=== PATIENT | female | born 1980 | race Hispanic/Latino ===

== ENCOUNTER 2017-11-03 10:19 | Inpatient (IN) | payer MEDICAID, OTHER, SELFPAY ==
[2017-11-03] MEDS: Lactated Ringer's 1,000 ML IV SCH ×3 (11:01→20:47)
[2017-11-03] MEDS ORDERED: Penicillin G Potassium 5 MILL.UNITS VIAL ONE (11:04)
[2017-11-03] MEDS ORDERED: Lidocaine 1% (PF) 30 ML VIAL ONE (11:09)
[2017-11-03] MEDS ORDERED: Penicillin G Potassium 5 MILL.UNITS in Sodium Chloride 0.9% 100 ML IVPB SCH (11:15)
[2017-11-03] MEDS: LR / Pitocin 40 units/1000 ml 1,000 ML ONE (11:21)
[2017-11-03] MEDS ORDERED: Lanolin Ointment 7 GM TUBE TOP PRN (11:34)
[2017-11-03] MEDS ORDERED: Ondansetron HCl/PF 4 MG/2 ML Vial IVP PRN ×2 (11:34)
[2017-11-03] MEDS ORDERED: Promethazine HCl 25 MG/ML VIAL IM PRN (11:34)
[2017-11-03] MEDS ORDERED: Bisacodyl 10 MG SUPP PR PRN (11:34)
[2017-11-03] MEDS ORDERED: Preparation H Ointment 28 GM TUBE PR PRN (11:34)
[2017-11-03] MEDS ORDERED: Milk Of Magnesia 30 ML UDCUP PO PRN (11:34)
[2017-11-03] MEDS ORDERED: diphenhydrAMINE 25 MG CAP PO PRN (11:34)
[2017-11-03] MEDS ORDERED: Adacel (T-DAP) 0.5 ML VIAL IM ONE (11:34)
[2017-11-03] MEDS ORDERED: Acetaminophen 500 MG TAB PO PRN (11:34)
[2017-11-03] MEDS ORDERED: Benzocaine/Menthol 20-0.5% 60 ML CAN TOP PRN (11:34)
--- NOTE | 2017-11-03 11:43 | PDOC.LDHP ---
Labor and Delivery H&P Chief complaint: contractions HPI: Pt came in reporting having ctx every 4-9 minutes. Says they were getting strong and having pain. Denied any bleeding. Denied any loss of fluid. Current gestational age (weeks): 39 (1 day) Due date: 11/09/17 Dating criteria: last menstrual period, first trimester ultrasound Grav: 6 Para: 3 OB History Details: 3 prior , 1 15 week AB, 1 early 1st trimester AB Current complications: gestational diabetes (A1) Abnormal US findings: No Past Medical History: None Current medications: pre-shaq vitamins Previous surgical history: dilation and curettage Social history: none - Physical Exam Vital signs reviewed and normal: yes General: NAD, breathing through contractions Heart: RRR Lungs: CTAB Abdomen: NTTP Extremeties: no edema FHT: category 2, late decelerations [place] contractions every: 2 - Vaginal Exam cm dilated: 8 Effacement: 90% Station: 0 - OB Labs Blood type: O RH: positive Antibody Screen: negative HIV: negative RPR: negative HEPSAg: negative 1 hour GCT: positive 3 hour GTT: negative GBS: positive Urine drug screen: negative Rubella: immune Additional Labs: Gonnorhea (-) Chlamydia (-) - Assessment L&D Assessment: term patient in labor Term Delivered GDM A1 -failed 1 hr GTT, Passed 3 hr GTT, Failed a value in 3 hr GTT with risk factors for GDM - Plan Plan: admit to L&D -: Term Delivered -Patient came in dilated @ 8/90/0. She was radha every 2-3 minutes. FHT showed a few late tracings. So her membranes were ruptured and an IUPC was placed. Oxygen was administered and pt was turned to her side. She then continued to have contractions and pain. We then reassessed her. Again cervical check was 8/90/0. She then had severe pain and had a big push and delivered onto the bed @ 11:14. Thick meconium was noted. -No lacerations were noted. -No bleeding. Uterus firm upon massage. -Apgars unknown. Will get from nursery. -Routine post care. GBS+ -Did not recieve any penicillin. -Will keep here for 48 hr monitoring Pt is GDM A1 with failed value during 3 hr GTT and risk factors -Will check serum glucose <Britton Spicer - Last Filed: 11/03/17 11:44> <Kassi Orona - Last Filed: 11/03/17 14:34> Allergies/Adverse Reactions: Allergies Allergy/AdvReac Type Severity Reaction Status Date / Time No Known Allergies Allergy Unverified 11/03/17 10:42 Attending Addendum - Attending Addendum I personally evaluated the patient and discussed the management with Dr. Spicer I agree with the History, Examination, Assessment and Plan documented above with any addition or exceptions noted below. 37 yo now female at 39.1 wks by LMP/18.2 wk sono delivered precipitously via . No lacerations. EBL 350 mL Thick mec. 1. sIUP: IOB labs and anatomy reviewed. 3T negative. GBS pos. 2. A1GDM: 1 hour gtt = 161. 3 hour gtt = 87/168/187/114. Glucose at goal. Admit glucose 78. 3. GBS pos: No PCN given due to urgency of delivery. 4. hx of CT: RILEY negative. 5. BMI 37: wt stable. 2lb wt gain. 6. Anemia of Continue routine care. Will be transferred to after routine recovery. ABrayMD <Kassi Orona - Last Filed: 11/03/17 14:34>
[2017-11-03 11:45] VITALS: BMI 37.3
[2017-11-03] MEDS ORDERED: LR / Pitocin 40 units/1000 ml 1,000 ML IV SCH (11:45)
[2017-11-03 11:49] LABS: Hemoglobin 12.6 g/dL (12.0-16.0); Mean Corpuscular HGB CONC 32.7 g/dL (32.0-36.0); Mean Corpuscular Hemoglobin 31.3 pg (27.0-31.0); Mean Corpuscular Volume 95.7 fl (81.0-99.0); Platelet Count 229 thou/uL (130-400); RBC Distribution Width 12.5 % (11.5-14.5); Red Blood Cell (RBC) Count 4.02 mill/uL (4.20-5.40); White Blood Cell (WBC) Count 9.4 thou/uL (4.8-10.8)
[2017-11-03 12:03] LABS: Anion Gap 13 mmol/L (10-20); BUN (Urea Nitrogen) 8 mg/dL (7.0-18.7); Calc. Creatinine Clearance 193 mL/min (70-130); Calcium 8.7 mg/dL (7.8-10.44); Carbon Dioxide 19 mmol/L (22-29); Chloride 108 mmol/L (98-107); Estimated GFR-MDRD Greater than 90; Glucose 78 mg/dL (70-105); Sodium 136 mmol/L (136-145)
--- NOTE | 2017-11-03 12:03 | CON ---
DATE OF CONSULTATION: 11/03/2017 ESTABLISHED PHYSICIAN: Kassi Orona M.D. CHIEF COMPLAINT: Labor pains. HISTORY OF PRESENT ILLNESS: Ms. Craig is a 37-year-old reportedly AB2 with a reported estimated date of confinement of 11/09/2017 who presents to Labor and Delivery this morning complaining of contractions. I was notified by the nursing staff of bradycardia upon initial evaluation. She denied rupture of membranes, vaginal bleeding or recent illness. She is a [facility] patient and has been assigned to . OBSTETRICAL HISTORY: She has apparently had 1 first trimester loss, one second trimester loss and 3 previous vaginal deliveries. PAST MEDICAL HISTORY: Reportedly, unremarkable. PAST SURGICAL HISTORY: Unknown. SOCIAL HISTORY: No reported alcohol or drug use. REVIEW OF SYSTEMS: Denies nausea, vomiting, fever or chills. PHYSICAL EXAMINATION: Her abdomen is gravid and she is clearly term. On pelvic exam, is noted to be 7 cm dilated with a bulging bag. Ultrasound at the bedside is performed and it is apparent that she is vertex. Amniotomy was performed and thick meconium stained fluid is seen. A scalp electrode is placed. IV had been started in the labor room and as to her group B strep status antibiotics were called for. ASSESSMENT: 1. Term intrauterine in advanced labor. 2. Decreased heart tones in triage. PLAN: scalp electrode has been placed. Family Practice has been notified and they are on their way. IV has been started and PEN G has been ordered. She will be observed closely for progress on her left side with O2 by FM. Vaginal delivery is quickly anticipated. NICU/Nursery have been notified. MARÍA
[2017-11-03 12:19] LABS: Syphilis Antibody Nonreactive (Nonreactive); Syphilis Antibody Index 0.06 S/CO (<1.00 Non-Reactive)
[2017-11-03 12:21] LABS: HBSAg Index 0.23 S/CO (0-0.99); Hep B Surf Ag Non-Reactive S/CO (NonReactive)
--- NOTE | 2017-11-03 13:12 | DN-2 ---
DATE OF ADMISSION: 11/03/2017 DELIVERY PHYSICIAN: Dr. Britton Spicer, PGY-1, Dr. Dye, PGY-3 ATTENDING: Dr. Kassi Orona PROCEDURE: Spontaneous vaginal delivery. ANESTHESIA: None. ESTIMATED BLOOD LOSS: 350 mL. PREOPERATIVE DIAGNOSES: 1. Term intrauterine in labor. 2. Gestational diabetes mellitus, insulin controlled Type 1. POSTOPERATIVE DIAGNOSES: 1. Term intrauterine , delivered. 2. Gestational diabetes mellitus, insulin controlled Type 1. INDICATIONS: A 37-year-old female, G6, P3 presents in active labor. DELIVERY NOTE: This is a 37-year-old G6, P3-0-2-3, at 39 and 1 weeks who delivered a viable male inf ant at 11:14. Following an uneventful antepartum course, a vigorous male was delivered over an intac t perineum in the occiput anterior position was delivered onto the bed. It should be noted that when the patient came in, she was checked and was at 8, 90 and 0. The baby did have some late decels, th ey then placed in an IUPC, ruptured her membranes. She was then checked again shortly after, she was again probably in 8, 90 and 0 position. She then had a very big push and a lot of pain and then pre cipitously delivered into the bed. We were there on attendance. Shoulders and remainder of t he body was then delivered. No nuchal cord. The head was held down and the mouth and nares were bul b suctioned. Thick meconium was noted. The cord was clamped and cut and cord blood collected. Plac enta delivered intact with a 3-vessel cord noted. Fundal massage was performed and the fundus was fi rm. There were a couple of clots were evacuated from the vaginal os. The cervix and vagina were ins pected and found to be free of lacerations. went to the Nursery in good condition for routine care. Apgars were 9 and 9 at 1 and 5 minutes respectively. The patient tolerated delivery well and went to after routine recovery/care.
[2017-11-03] MEDS: Penicillin G 2.5 MILL.units 2.5 MILL.UNITS in Premix Bag 1 BAG IVPB SCH (15:27)
[2017-11-03] MEDS: Ibuprofen 800 MG TAB PO PRN ×2 (15:28→23:18)
[2017-11-03] MEDS: Ferrous Sulfate 325 MG TAB PO SCH (17:24)
[2017-11-03] MEDS: Docusate Calcium (SURFAK) 240 MG CAP PO SCH (20:18)
--- NOTE | 2017-11-04 08:00 | PDOC.PP ---
Post Progress Note Post Day #: 1 Subjective: Pt doing well. Says she is having some stomach pain. Describes it as nausea pain. Reports light red bleeding. Denies any SOB. Denies any fever or chills. Denies any acute events overnight. Is and supplementing with formula. PO intake tolerated: yes Flatus: yes Ambulation: yes Vital Signs (12 hours) Temp Pulse Resp BP BP 11/04/17 04:00 98.9 F 67 16 102/57 L 11/03/17 23:43 98.5 F 61 16 107/58 L 11/03/17 20:00 99.0 F 64 16 105/53 L Weight Weight 86.636 kg - Physical Examination General: NAD Cardiovascular: no m/r/g, RRR Respiratory: clear to auscultation bilaterally, non-labored breathing Abdominal: + bowel sounds, lochia (light), no distention, appropriately TTP Extremities: negative homans (B) Skin: no rash Neurological: no gross focal deficits Psychiatric: A&Ox3, normal affect Result Diagrams: 11/03/17 11:00 11/03/17 11:00 Additional Labs: Post Labs Hep Bs Antigen Non-Reactive S/CO (NonReactive) 11/03/17 11:00 (1) Term delivered Code(s): O80 - ENCOUNTER FOR FULL-TERM UNCOMPLICATED DELIVERY Status: Acute - Assessment/Plan ->4 37 yo mother delivered via @ 11:14 yesterday -Routine care -Having some nausea. Will make sure she gets some zofran and see if that helps with pain. -Pain being well managed -Pt possibly could go home today if she is doing well and having no problems GDM A1 -Blood sugar stable on BMP. -Will continue to monitor. <Britton Spicer - Last Filed: 11/04/17 07:58> Vital Signs (12 hours) Temp Pulse Resp BP BP Pulse Ox 11/05/17 08:37 98.7 F 54 L 20 105/59 L 11/05/17 04:12 98.7 F 60 16 112/60 11/05/17 00:12 98.9 F 76 16 110/57 L 11/04/17 21:02 99.0 F 71 16 16 L Weight Weight 86.636 kg Result Diagrams: 11/03/17 11:00 11/03/17 11:00 Additional Labs: Post Labs Hep Bs Antigen Non-Reactive S/CO (NonReactive) 11/03/17 11:00 <Tyrone Lamar - Last Filed: 11/05/17 08:49> Attending Addendum - Attending Addendum I personally evaluated the patient and discussed the management with Dr. Spicer and team. I agree with and repeated the History, Examination, Assessment and Plan documented above with any addition or exceptions noted below. Doing well. Pain controlled this AM. Minimal bleeding. Ok for d/c. Follow up at [facility]. GTT in 6 weeks. Motrin PRN pain control. ED warnings discussed. <Tyrone Lamar - Last Filed: 11/05/17 08:49>
[2017-11-04] MEDS ORDERED: FLU VACC QS2017-18 36 mo. & older 0.5 ML SYRINGE IM ONE (09:00)
[2017-11-04] MEDS: Ferrous Sulfate 325 MG TAB PO SCH ×2 (09:19→17:19)
[2017-11-04] MEDS: Prenatal Vitamin 1 TAB PO SCH (09:20)
[2017-11-04] MEDS: Docusate Calcium (SURFAK) 240 MG CAP PO SCH ×2 (09:20→21:03)
[2017-11-04] MEDS: Lactated Ringer's 1,000 ML IV SCH (14:21)
[2017-11-04] MEDS: Penicillin G 2.5 MILL.units 2.5 MILL.UNITS in Premix Bag 1 BAG IVPB SCH (17:20)
[2017-11-05] MEDS: Lactated Ringer's 1,000 ML IV SCH ×3 (01:25→09:36)
[2017-11-05 04:56] VITALS: TEMP 98.7
[2017-11-05] MEDS: Ibuprofen 800 MG TAB PO PRN (06:12)
[2017-11-05 08:38] VITALS: BP 105/59
[2017-11-05] MEDS: Docusate Calcium (SURFAK) 240 MG CAP PO SCH (09:10)
[2017-11-05] MEDS: Prenatal Vitamin 1 TAB PO SCH (09:10)
[2017-11-05] MEDS: Ferrous Sulfate 325 MG TAB PO SCH (09:35)
[2017-11-05] MEDS: Penicillin G 2.5 MILL.units 2.5 MILL.UNITS in Premix Bag 1 BAG IVPB SCH (09:36)
== END 2017-11-05 11:50 | disposition home or self-care (01) | DRG 775 ==
LOC: L&D/OP 10:19 → L&D 11:19 → 3SW 14:51
PROVIDERS: ADMIT Student in an Organized Health Care Education/Training Program; ATTEND Student in an Organized Health Care Education/Training Program
PROC: 10E0XZZ Delivery of Products of Conception, External Approach (ICD-10-PCS; principal; 2017-11-03)
PROC: 10907ZC Drainage of Amniotic Fluid, Therapeutic from Products of Conception, Via Natural or Artificial Opening (ICD-10-PCS; 2017-11-03)
PROC: 10H07YZ Insertion of Other Device into Products of Conception, Via Natural or Artificial Opening (ICD-10-PCS; 2017-11-03)
PROC: 4A1H74Z Monitoring of Products of Conception, Cardiac Electrical Activity, Via Natural or Artificial Opening (ICD-10-PCS; 2017-11-03)
DX: O24.424 Gestational diabetes mellitus in childbirth, insulin controlled (principal); D64.9 Anemia, unspecified; O99.824 Streptococcus B carrier state complicating childbirth; Z37.0 Single live birth; Z3A.39 39 weeks gestation of pregnancy; O77.0 Labor and delivery complicated by meconium in amniotic fluid; O99.02 Anemia complicating childbirth; O62.3 Precipitate labor
CPT/HCPCS: 80048; 85027; 86780; 87340; 90471; 90682; 90715; 99285; G0008; J0595; J2001; J2540; J7050; Q2036